=== PATIENT | female | born 1970 | race Two or more races ===

== ENCOUNTER → 2024-12-25 | Outpatient (CLI) | payer BC, SELFPAY ==
--- NOTE | 2024-12-25 09:15 | XR_ITS ---
Examination: Diagnostic digital mammography, unilateral, right Computer aided detection 3-D breast Tomosynthesis, unilateral Date and time of exam: December 25, 2024 0902 hours INDICATIONS: Probably benign calcifications inner upper right breast on mammogram June 20, 2024 Technique: Nonmagnified MLO, CC views of the right breast have been obtained, reconstructed from 3-D Tomosynthesis images. R2 computer aided detection program utilized for evaluation of suspicious masses and/or abnormal calcifications. 3-D Tomosynthesis images obtained. Findings: Scattered areas of fibroglandular density Benign calcifications inner right breast No suspicious masses Impression: BI-RADS category 2: Benign findings Recommend yearly follow-up mammography
== END | disposition home or self-care (01) ==
PROVIDERS: Referring Provider Family Medicine; Visit Provider Family Medicine
DX: R92.321 Mammographic fibroglandular density, right breast (principal); R92.1 Mammographic calcification found on diagnostic imaging of breast
CPT/HCPCS: 77061; 77065; G0279

== ENCOUNTER 2025-03-21 10:08 | Emergency (ER) | payer BC, SELFPAY ==
[2025-03-21 10:23] VITALS: BP 153/85; PULSE 64; RESP 18; TEMP 36.9; O2SAT 97; BMI 30.7
--- NOTE | 2025-03-21 10:35 | XR_ITS ---
Examination: CT brain head without contrast. 2-D sagittal coronal reconstructions Date and time of exam:March 21, 2025 1120 hours INDICATIONS: Onset posterior headaches today COMPARISON: March 02, 2024 CTDI: vol (mGy):44 DLP: (mGycm):865 Technique: Multiple CT axial sections of the brain have been obtained, 5 mm slice thickness. Contrast has not been administered. 2-D sagittal, coronal reconstructions have been obtained Low dose protocols were performed. One or more of the following dose reduction techniques were used; automated exposure control, adjustment of the mA and/or KV according to patient size, use of iterative reconstruction technique. Findings: No significant ventricular enlargement. Intra-axial or extra-axial hemorrhage density is not seen. No mass effect or midline shift Basal cisterns are not remarkable. Fourth ventricle is midline. Cranial vault intact. Impression: Negative for acute hemorrhage, mass effect or midline shift Advise clinical correlation follow-up accordingly
--- NOTE | 2025-03-21 10:35 | XR_ITS ---
Examination: PA lateral chest 2 views TECHNIQUE: Upright PA lateral chest 2 views Exam date and time: March 21, 2025 1107 hours INDICATIONS: Chest pain 3 months. FINDINGS: Normal heart size. Lungs are clear. The osseous structures are intact IMPRESSION: No active disease
--- NOTE | 2025-03-21 10:37 | PD.EDRME ---
Rapid Medical Screening Exam RME Arrival date/time: 03/21/25 10:08 55-year-old female with a history of colon cancer that is in remission presents to the emergency room with a chief complaint of a headache, shortness of breath, a bilateral rash to her upper extremities, weakness and fatigue. Patient states she called her oncologist and was sent to the emergency room. I have greeted and performed a focused initial assessment of this patient. A comprehensive ED assessment and evaluation of the patient, analysis of all test results, and completion of the medical decision making process will be conducted by additional ED providers. Chief Complaint: General Adult/Misc Complain Time Seen by Provider: 03/21/25 10:25 Vital signs: Vital Signs Temperature 98.5 F 03/21/25 10:23 Pulse Rate 64 03/21/25 10:23 Respiratory Rate 18 03/21/25 10:23 Blood Pressure 153/85 H 03/21/25 10:23 Pulse Oximetry (%) 97 03/21/25 10:23 Oxygen Delivery Method Room Air 03/21/25 10:23 Vital signs reviewed by provider: Yes
[2025-03-21 11:11] LABS: Basophils % (Auto) 1 % (0-2.5); Eosinophils # (Auto) 0.1 Thou/mm3 (0.0-0.5); Eosinophils % (Auto) 3 % (0-10); Hematocrit 38.3 % (36.0-46.0); Hemoglobin 13.1 g/dL (12.0-16.0); Immature Granulocytes % (Auto) 0 % (0-0); Lymphocytes # (Auto) 1.6 Thou/mm3 (1.0-4.8); Lymphocytes % (Auto) 33 % (10-50); Mean Corpuscular HGB Conc 34.2 g/dl (31.0-37.0); Mean Corpuscular Volume 94 fL (80-100); Monocytes # (Auto) 0.3 Thou/mm3 (0.0-0.8); Monocytes % (Auto) 7 % (0-12); Neutrophils # (Auto) 2.6 Thou/mm3 (1.8-7.7); Neutrophils % (Auto) 57 % (37-80); Nucleated Red Blood Cell % 0 /100 WBC (0); Platelet Count 286 Thou/mm3 (140-440); RDW Standard Deviation 40.5 fL (36.4-46.3); Red Blood Count 4.09 Miln/mm3 (4.00-5.20); White Blood Count 4.7 Thou/mm3 (3.6-11.0)
[2025-03-21 11:30] LABS: B-Type Natriuretic Peptide 42 pg/mL (0-100)
[2025-03-21 11:33] LABS: Alanine Aminotransferase 28 U/L (10-49); Albumin, Serum 4.6 gm/dL (3.5-5.0); Albumin/Globulin Ratio 1.6 (1.2-2.2); Alkaline Phosphatase 67 U/L (46-116); Anion Gap 7 (7-16); Aspartate Amino Transferase 23 U/L (0-34); BUN/Creatinine Ratio 13 Ratio (12-20); Bilirubin,Total 0.5 mg/dL (0.3-1.2); Blood Urea Nitrogen 9 mg/dL (9-23); Carbon Dioxide 29.3 mMol/L (20.0-31.0); Chloride 105 mMol/L (98-107); Creatinine (Component) 0.7 mg/dL (0.6-1.3); Estimated Creatinine Clearance 85.8 mL/min (>60); Globulin 2.8 gm/dL (2.3-3.5); Glucose 100 mg/dL (74-106); Lipase 35 U/L (12-53); Osmolality,Calculated 279 (275-295); Potassium 3.8 mMol/L (3.4-5.1); Sodium 141 mMol/L (136-145); Total Protein 7.4 gm/dL (5.7-8.2); Troponin I < 0.002 ng/mL (0.0-0.045); eGFR > 60 See Note
[2025-03-21 11:49] LABS: Collection Type, Urine Clean Catch
[2025-03-21 12:24] LABS: Bilirubin,Urine Negative (Negative); Blood,Urine Negative (Negative); Clarity,Urine Clear (Clear/Hazy); Color,Urine Yellow (Lt Yel-Yel); Culture Indicated,Urine Not Indicated; Glucose, Urine Negative (Negative); Ketones,Urine Negative (Negative); Leukocyte Esterase,Urine Negative (Negative); Nitrite,Urine Negative (Negative); Protein,Urine Trace (Neg - Trace); RBC,Urine 5 /hpf (0-3); Specific Gravity,Urine 1.024 (1.001-1.035); Squamous Epithelial Cell,Urine < 1 /hpf (0-5); Urobilinogen,Urine Negative mg/dL (0.0-1.0); WBC,Urine 1 /hpf (0-5)
--- NOTE | 2025-03-21 14:30 | PC.NURSE ---
no answer in lobby
--- NOTE | 2025-03-21 14:45 | PC.NURSE ---
NO ANSWER IN LOBBY OR IN FRONT OF ER
--- NOTE | 2025-03-21 15:10 | PC.NURSE ---
NO ANSWER IN LOBBY OR IN FRONT OF ER. WILL DOCUMENT THAT PT ELOPED AT THIS TIME
== END 2025-03-21 15:13 | disposition left against medical advice (07) ==
PROVIDERS: Nurse Practitioner Family; Emergency Provider Family Medicine; PCP Family Medicine
DX: R51.9 Headache, unspecified (principal); R06.02 Shortness of breath; Z53.29 Procedure and treatment not carried out because of patient's decision for other reasons; R21 Rash and other nonspecific skin eruption; Z85.038 Personal history of other malignant neoplasm of large intestine; R53.1 Weakness; R53.83 Other fatigue
CPT/HCPCS: 36415; 70450; 71046; 80053; 81001; 83690; 83880; 84484; 85025; 99281

== ENCOUNTER → 2025-08-26 | Outpatient (CLI) | payer BC, SELFPAY ==
--- NOTE | 2025-08-26 14:48 | XR_ITS ---
Examination: Shoulder, right, 3 views Technique: Shoulder AP internal rotation, AP external rotation, Y view shoulder, 3 views Exam date and time : August 26, 2025, 1458 hours INDICATIONS: Right shoulder pain beginning 2 weeks ago FINDINGS: Moderate narrowing glenohumeral joint No shoulder fracture or dislocation Mild AC joint separation 5 mm IMPRESSION: No acute fracture Age-indeterminate mild AC joint separation
--- NOTE | 2025-08-26 15:02 | XR_ITS ---
EXAMINATION: Cervical spine 3 views TECHNIQUE: AP lateral coned AP odontoid cervical spine 3 views Date and time: August 26, 2025, 1509 hours,. INDICATIONS: Neck pain radiating to the arms beginning 2 weeks ago. FINDINGS: Straightening normal cervical lordosis. No cervical fracture. Intact odontoid. Advanced degenerative disc disease C5-C6, C6-C7 IMPRESSION: Advanced degenerative disc disease C5-C6, C6-C7
== END | disposition home or self-care (01) ==
LOC: SDIM 14:38
PROVIDERS: PCP Family Medicine; Referring Provider Family Medicine; Visit Provider Family Medicine
DX: M50.321 Other cervical disc degeneration at C4-C5 level (principal); S43.101A Unspecified dislocation of right acromioclavicular joint, initial encounter; X58.XXXA Exposure to other specified factors, initial encounter
CPT/HCPCS: 72040; 73030

== ENCOUNTER 2025-09-04 23:00 | Emergency (ER) | payer BC, SELFPAY ==
[2025-09-04 23:02] VITALS: BMI 30.2
[2025-09-04 23:04] VITALS: BP 156/92; PULSE 74; RESP 19; TEMP 36.9; O2SAT 96
--- NOTE | 2025-09-04 23:31 | PD.EDUPEX ---
Upper Extremity Injury RME/HPI General Chief Complaint: Extremity Injury, Upper Stated Complaint: R SHOULDER PAIN/ FEELS COLD Time Seen by Provider: 09/04/25 23:22 Arrival date/time: 09/04/25 23:00 55F with no significant PMH presents to ED with 2 week of R shoulder pain w/o fall/trauma and intermittent cold sensation. Patient had recent XRs, which showed some AC joint separation and advanced DDD in neck. Symptoms are improved while holding R elbow with L hand in a sling position. Limitations: no limitations Related Data Allergies Allergy/AdvReac Type Severity Reaction Status Date / Time fluconazole Allergy Severe RASH Verified 09/04/25 23:08 Review of Systems Review of Systems Systems Reviewed: All systems reviewed, normal except as documented Musculoskeletal Musculoskeletal: Reports as per HPI and Reports arthralgias Past Medical History Past Medical History CARDIAC: Negative Cardiac Disorders or Congestive Heart Failure RESPIRATORY: Negative Chronic Obstructive Pulmonary Disease (COPD) or Asthma GENITOURINARY: Negative Renal Disease ENDOCRINE: Negative Diabetes Mellitus Type 1 or Diabetes Mellitus Type 2 HEMATOLOGIC: Negative Sickle Cell Disease Social History SMOKING STATUS: Never smoker ED Exam General Limitations: Present no limitations General appearance: Present alert and in no apparent distress Head Head exam: Present atraumatic Neck Neck exam: Present normal inspection, full ROM and trachea midline Chest Chest inspection: Present normal inspection and symmetric chest wall rise Extremities Exam Extremities exam: Present normal inspection and full ROM Neurological Exam Neurological exam: Present alert and oriented X3 Psychiatric Psychiatric exam: Present normal affect and normal mood Skin Skin exam: Present warm, dry, intact and normal color Course Quality Measures none Orders Category Date Time Status sling [Splint / Immobilizer] STAT Care 09/04/25 23:23 Completed HYDROcodone*/APAP 5/325 [[place] 5/325] Med 09/04/25 23:23 Discontinued 1 tab PO X1 ONE Vital Signs Vital signs: Vital Signs Temperature 98.5 F 09/04/25 23:04 Pulse Rate 74 09/04/25 23:04 Respiratory Rate 19 09/04/25 23:04 Blood Pressure 156/92 H 09/04/25 23:04 Pulse Oximetry (%) 96 09/04/25 23:04 O2 at 96% on RA and WNLs Extremity Injury MDM Narrative MDM Narrative:: 55F with no significant PMH presents to ED with 2 week of R shoulder pain w/o fall/trauma and intermittent cold sensation. Patient had recent XRs, which showed some AC joint separation and advanced DDD in neck. Symptoms are improved while holding R elbow with L hand in a sling position. Physical exam reveals unremarkable RUE exam including no redness or swelling swelling. Distal ROM intact. Skin color normal. Patient is afebrile, calm, and alert. Likely MSK-related. Given sling, meds, and dormitory counselor. Patient data External records reviewed:: [facility] previous records Clinical information provided by:: patient Social determinants that could affect healthcare access:: none Patient has the following chronic illnesses:: none How is presenting disease/condition affected by chronic disease/condition?: no chronic disease Evaluation data The following diagnostics were reviewed and interpreted by me:: other (specify) (none) Lab and/or radiology exams considered but not ordered:: not ordered Interpretation Summary: n/a Medications / Prescriptions Medications or Prescriptions considered but not ordered:: ordered Medication administrations:: Medication Administration History Discontinued Medications Hydrocodone Bitart/Acetaminophen (Hydrocodone/Apap 5/325 Tablet) 1 tab PO X1 ONE Stop: 09/04/25 23:24 Last Admin: 09/04/25 23:51 Dose: 1 tab Documented By: MC above Consultations Consultation(s) initiated? (list below): No Diagnosis Upper Extremity Injury Differential Diagnosis: dislocation of shoulder, fracture of humerus, fracture of clavicle and other (shoulder pain) Most likely diagnosis given after review of the tests above:: shoulder pain Admission Indicated Admission indicated?: not indicated Admission Request Was there a request for admission?: No Disposition Plan Disposition Plan: Discharge Discharge Attestation Discharge Attestation: The patient and all family members were given an opportunity to ask questions and understood the discharge instructions. Discharge instructions specifically effects, indications for sooner follow up or return to the emergency department, and the expected course of current diagnosis. Patient condition: Stable Discharge Plan Plan Patient Disposition: HOME (Self Care) Discharge Disposition comment: Stable Problem List Clinical Impression: Right shoulder pain Patient/Caregiver Discharge Instructions Education Materials: ED Arthralgia Additional Instructions: Please follow-up with PCP within 24-48 hours and return immediately if symptoms worsen. If problem persists, recommend outpatient PT and/or MRI follow-up. In the meantime, rest, use ice/heat, and/or compression. Print Language: Bhutanese Stand Alone Forms: Patient Portal Info Letter DAKOTA/TULIO Supervising Physician PA/CONSTRUCTION PROJECT ENGINEER Supervising Physician: Dr. Diaz
[2025-09-04] MEDS: HYDROcodone/APAP 5/325 TABLET 1 TAB PO (23:51)
== END 2025-09-04 23:53 | disposition home or self-care (01) ==
LOC: SERX 23:46
PROVIDERS: Emergency Provider Emergency Medicine; PCP Family Medicine
DX: M25.511 Pain in right shoulder (principal)
CPT/HCPCS: 99282; A4565; A9270

== ENCOUNTER → 2025-10-21 | Outpatient (CLI) | payer BC, SELFPAY ==
--- NOTE | 2025-10-21 07:00 | XR_ITS ---
Examination: MRI cervical spine without intravenous contrast Date and time of exam: October 21, 2025, 0720 hours INDICATIONS: Neck pain 1 year radiating down the arms paresthesias in the arms Technique: Multiple axial and sagittal sections of the cervical spine to been obtained. T2 weighted sagittal sections, TR 3, 270, TE 117 T1-weighted sagittal sections, TR 500, TE 11 T1-weighted axial sections, TR 607, TE 12, axial sections TR 18, TE 27 and T2 weighted transverse sections, TR 3920, TE 122. Findings: Straightening normal cervical doses. No cervical fracture Intact odontoid Diffuse cervical disc desiccation Moderate disc narrowing C5-C6 No localized enlargement of cervical cord C2-C3 no disc protrusion C3-C4 no disc protrusion C4-C5 2 mm central subarticular osteophyte disc complex, moderate bilateral neuroforaminal stenosis C5-C6 significant overall spinal stenosis, up to 5 mm right paracentral subarticular osteophyte disc complex, axial image 10, indenting ventral margin cervical cord, advanced bilateral neural foraminal stenosis C6-C7 left uncinate process hypertrophy and to a lesser extent right uncinate process hypertrophy producing advanced bilateral neuroforaminal stenosis C7-T1 no disc protrusion IMPRESSION: C5-C6 severe overall spinal stenosis, including advanced bilateral neuroforaminal stenosis C6-C7 advanced bilateral neuroforaminal stenosis
== END | disposition home or self-care (01) ==
PROVIDERS: PCP Family Medicine; Referring Provider Family Medicine; Visit Provider Family Medicine
DX: M54.12 Radiculopathy, cervical region (principal); M48.02 Spinal stenosis, cervical region
CPT/HCPCS: 72141

== ENCOUNTER → 2025-10-29 | Outpatient (CLI) | payer BC, SELFPAY ==
[2025-10-29 09:48] LABS: Basophils # (Auto) 0.0 Thou/mm3 (0.0-0.2); Basophils % (Auto) 1 % (0-2.5); Eosinophils # (Auto) 0.1 Thou/mm3 (0.0-0.5); Eosinophils % (Auto) 3 % (0-10); Hematocrit 40.4 % (36.0-46.0); Hemoglobin 12.9 g/dL (12.0-16.0); Immature Granulocytes Auto 0.01 Thou/mm3 (0.00-0.00); Lymphocytes # (Auto) 1.8 Thou/mm3 (1.0-4.8); Lymphocytes % (Auto) 41 % (10-50); Mean Corpuscular HGB Conc 31.9 g/dl (31.0-37.0); Mean Corpuscular Hemoglobin 30.6 pg (25.0-35.0); Mean Corpuscular Volume 96 fL (80-100); Monocytes # (Auto) 0.4 Thou/mm3 (0.0-0.8); Monocytes % (Auto) 9 % (0-12); Neutrophils # (Auto) 2.1 Thou/mm3 (1.8-7.7); Neutrophils % (Auto) 47 % (37-80); Nucleated Red Blood Cell # 0.00 Thou/mm3 (0.00-0.00); Nucleated Red Blood Cell % 0 /100 WBC (0); Platelet Count 300 Thou/mm3 (140-440); RDW Standard Deviation 42.2 fL (36.4-46.3); Red Blood Count 4.22 Miln/mm3 (4.00-5.20); White Blood Count 4.4 Thou/mm3 (3.6-11.0)
[2025-10-29 10:07] LABS: Ferritin 516 ng/mL (7.3-270.7); Glucose 96 mg/dL (74-106); Iron 74 mcg/dL (50-170); Percent Iron Saturation 27 % (20-55); Thyroid Stimulating Hormone 2.63 uIU/mL (0.55-4.78); Total Iron Binding Capacity 269 mcg/dL (250-425); Unsaturated Iron Binding 195 (225-295)
[2025-10-29 10:53] LABS: Carcinoembryonic Antigen < 0.5 ng/mL (0.0-5.0); Folate 13.46 ng/mL (>5.38); Vitamin B12 549 pg/mL (211-911); Vitamin D 25 Hydroxy Total 32.8 ng/mL (7.3-40.2)
== END | disposition home or self-care (01) ==
LOC: COPL 08:57
PROVIDERS: PCP Family Medicine; Referring Provider Family Medicine; Visit Provider Family Medicine
DX: D64.9 Anemia, unspecified (principal); Z85.038 Personal history of other malignant neoplasm of large intestine
CPT/HCPCS: 36415; 82306; 82378; 82607; 82728; 82746; 82947; 83540; 83550; 84443; 85025